=== PATIENT | male | born 1990 | race Hispanic/Latino ===

== ENCOUNTER 2021-03-03 18:18 | Emergency (ER) | payer SELFPAY ==
--- NOTE | 2021-03-03 19:16 | EDPHYS ---
Physician Documentation [facility] Name: Ilir Bush Age: 30 yrs Sex: Male : 1990 Arrival Date: 03/03/2021 Time: 18:21 Bed Waiting Private MD: ED Physician Immanuel العلي HPI: 03/03 19:14 This 30 yrs old Male presents to ER via Unassigned with complaints of Fever, ma2 Vomiting/Diarrhea. 19:14 The patient reports fever, not measured (subjective). Onset: The symptoms/episode ma2 began/occurred gradually, 3 day(s) ago. Onset: The symptoms/episode began/occurred 5 day(s) ago. Associated signs and symptoms: Pertinent positives: runny nose, Pertinent negatives: altered mental status, chest pain, cough, hemoptysis, night sweats, sinus drainage. Severity of symptoms: At their worst the symptoms were moderate in the emergency department the symptoms are unchanged. The patient has experienced similar episodes in the past. Historical: - Allergies: 19:15 No Known Allergies; ll1 - PMHx: 19:15 None; ll1 - PSHx: 19:15 None; ll1 - Immunization history:: Client reports receiving the 2nd dose of the Covid vaccine. - Social history:: Patient/guardian denies using alcohol, street drugs, The patient lives with family, Smoking status: Patient/guardian denies using tobacco, Stopped _ months ago .2. - Family history:: not pertinent. ROS: 19:14 Constitutional: Negative for fever, chills, and weight loss. ma2 19:14 All other systems are negative. Exam: 19:14 Constitutional: This is a well developed, well nourished patient who is awake, alert, ma2 and in no acute distress. Head/Face: Normocephalic, atraumatic. Eyes: Pupils equal round and reactive to light, extra-ocular motions intact. Lids and lashes normal. Conjunctiva and sclera are non-icteric and not injected. Cornea within normal limits. Periorbital areas with no swelling, redness, or edema. ENT: red oropharynx with puss, no abscess or swelling, Nares patent. No nasal discharge, no septal abnormalities noted. Tympanic membranes are normal and external auditory canals are clear. Oropharynx with no swelling, or masses, exudates, or evidence of obstruction, uvula midline. Mucous membranes moist. Neck: Trachea midline, no thyromegaly or masses palpated, and no cervical lymphadenopathy. Supple, full range of motion without nuchal rigidity, or vertebral point tenderness. No Meningismus. Chest/axilla: Normal chest wall appearance and motion. Nontender with no deformity. No lesions are appreciated. Cardiovascular: Regular rate and rhythm with a normal S1 and S2. No gallops, murmurs, or rubs. Normal PMI, no JVD. No pulse deficits. Respiratory: Lungs have equal breath sounds bilaterally, clear to auscultation and percussion. No rales, rhonchi or wheezes noted. No increased work of breathing, no retractions or nasal flaring. Abdomen/GI: Soft, non-tender, with normal bowel sounds. No distension or tympany. No guarding or rebound. No evidence of tenderness throughout. Vital Signs: 19:08 BP 130 / 78; Pulse 84; Resp 17; Temp 98.5; Pulse Ox 99% ; Weight 84.82 kg; Height 5 ft. ll1 5 in. (165.10 cm); Pain 4/10; 19:08 Body Mass Index 31.12 (84.82 kg, 165.10 cm) ll1 MDM: 19:14 Differential diagnosis: viral Infection, bacterial infection, URI, gastroenteritis. ma2 Data reviewed: vital signs, nurses notes. Counseling: I had a detailed discussion with the patient and/or guardian regarding: the historical points, exam findings, and any diagnostic results supporting the discharge/admit diagnosis, the presence of at least one elevated blood pressure reading (>120/80) during this emergency department visit, the need for outpatient follow up. Medical screen evaluation completed. EMTALA emergency medical condition absent. Response to treatment: the patient's symptoms have markedly improved after treatment. 19:16 Patient medically screened. ma2 03/03 19:34 Order name: SARS-COV-2 RT PCR EDMS Administered Medications: No medications were administered Disposition Summary: 03/03/21 19:16 Discharge Ordered Location: Home ma2 Condition: Stable ma2 Diagnosis - Acute recurrent tonsillitis, unspecified ma2 Followup: ma2 - With: Private Physician - When: Tomorrow - Reason: If symptoms return, Continuance of care Discharge Instructions: - Discharge Summary Sheet ma2 - Tonsillitis, [id number] ma2 Forms: - Medication Reconciliation Form ma2 - Thank You Letter ma2 - Antibiotic Education ma2 - Prescription Opioid Use ma2 - Work release form ll1 Prescriptions: - Diclofenac Sodium 75 mg Oral Tablet Sustained Release - take 1 tablet by ORAL route 2 times per day; 30 tablet; Refills: 0, Product ma2 Selection Permitted - Zithromax Z-Rl 250 mg Oral Tablet - take 1 tablet by ORAL route as directed for 5 days Day 1 - take two (2) tablets ma2 one time. Day 2, 3, 4 , 5 take one (1) tablet once daily.; 6 tablet; Refills: 0, Product Selection Permitted Signatures: Dispatcher [employer] EDImmanuel Baugh MD MD ma2 Candace Warner RN RN ll1 Corrections: (The following items were deleted from the chart) 19:34 19:17 CORONAVIRUS+MR.LAB.BRZ ordered. EDMS EDMS
--- NOTE | 2021-03-03 19:16 | ER ---
Nurse's Notes [facility] Name: Ilir Bush Age: 30 yrs Sex: Male : 1990 Arrival Date: 03/03/2021 Time: 18:21 Bed Waiting Private MD: Diagnosis: Acute recurrent tonsillitis, unspecified Presentation: 03/03 19:08 Chief complaint: Patient states: Fever for 5 days, up to 105 at home. N/V started ll1 today, still has diarrhea. + sore throat and bilateral ear pain, no cough. Coronavirus screen: Vaccine status: Patient reports receiving the 2nd dose of the covid vaccine. Client denies travel out of the [place] in the last 14 days. chills, diarrhea, fatigue, fever, headache, nausea, shaking with chills, sore throat, vomiting. Client presents with at least one sign or symptom that may indicate coronavirus-19. Standard/surgical mask placed on the client. Ebola Screen: Patient denies travel to an Ebola-affected area in the 21 days before illness onset. Initial Sepsis Screen: Does the patient meet any 2 criteria? No. Patient's initial sepsis screen is negative. Does the patient have a suspected source of infection? Yes: Other: strep throat. Risk Assessment: Do you want to hurt yourself or someone else? Patient reports no desire to harm self or others. Onset of symptoms was February 26, 2021. 19:08 Method Of Arrival: Ambulatory ll1 19:08 Acuity: RAHUL 3 ll1 Triage Assessment: 19:34 General: Appears in no apparent distress. Behavior is calm, cooperative, appropriate ll1 for age. Pain: Denies pain. GI: No deficits noted. Reports nausea. Historical: - Allergies: 19:15 No Known Allergies; ll1 - PMHx: 19:15 None; ll1 - PSHx: 19:15 None; ll1 - Immunization history:: Client reports receiving the 2nd dose of the Covid vaccine. - Social history:: Patient/guardian denies using alcohol, street drugs, The patient lives with family, Smoking status: Patient/guardian denies using tobacco, Stopped _ months ago .2. - Family history:: not pertinent. Screenin:33 Abuse screen: Denies threats or abuse. Nutritional screening: No deficits noted. ll1 Tuberculosis screening: No symptoms or risk factors identified. Fall Risk Ambulatory Aid- Crutches/Cane/Walker (15 pts). Total Willett Fall Scale indicates No Risk (0-24 pts). Assessment: 19:34 GI: Abdomen is flat. ll1 Vital Signs: 19:08 BP 130 / 78; Pulse 84; Resp 17; Temp 98.5; Pulse Ox 99% ; Weight 84.82 kg; Height 5 ft. ll1 5 in. (165.10 cm); Pain 4/10; 19:08 Body Mass Index 31.12 (84.82 kg, 165.10 cm) ll1 ED Course: 18:21 Patient arrived in ED. mr 19:14 Immanuel العلي MD is Attending Physician. ma2 19:15 Triage completed. ll1 19:15 Arm band placed on. ll1 19:34 No provider procedures requiring assistance completed. Patient did not have IV access ll1 during this emergency room visit. 19:35 Patient has correct armband on for positive identification. Bed in low position. Call ll1 light in reach. Side rails up X 1. Administered Medications: No medications were administered Outcome: 19:16 Discharge ordered by . ma2 19:34 Discharged to home ambulatory. ll1 19:34 Condition: stable 19:34 Discharge instructions given to patient, Instructed on discharge instructions, follow up and referral plans. Demonstrated understanding of instructions, follow-up care, medications, Prescriptions given X 1. 19:35 Patient left the ED. ll1 Signatures: Reggie Sophy mr Immanuel العلي MD MD ma2 Candace Warner RN RN 1
[2021-03-03 19:50] VITALS: BP 130/78; TEMP 98.5; O2SAT 99
== END 2021-03-03 19:35 | disposition home or self-care (01) ==
LOC: ER 18:18
DX: J03.91 Acute recurrent tonsillitis, unspecified (principal); Z20.822 Contact with and (suspected) exposure to COVID-19
CPT/HCPCS: 99282; U0003